=== PATIENT | male | born 1990 | race Caucasian/White ===

== ENCOUNTER 2020-03-30 08:32 | Emergency (ER) | payer BC ==
[2020-03-30 08:43] VITALS: TEMP 100.3
[2020-03-30] MEDS ORDERED: IBUPROFEN 600 MG TAB PO STA (08:51)
--- NOTE | 2020-03-30 08:53 | ED ---
General Adult HPI - General Chief complaint: Fall Stated complaint: Fall tree stand +15ft ankle injury Time Seen by Provider: 03/30/20 08:35 Source: patient, RN notes reviewed, old records reviewed Mode of arrival: wheelchair Limitations: no limitations - History of Present Illness Initial comments: This is a 30-year-old male who presents emergency Department complaining of left ankle pain. Patient states he fell out of a tree stand his feet were between 10 and 15 feet high. Patient states he landed on his feet and fell back onto his back. Patient states he did not hit his head he denies any neck pain. Patient denies chest pain or any back pain. Patient denies any numbness or weakness. Patient denies any hip pain. Patient states he only pain he experiences left ankle. Patient states he has no foot pain at all. - Related Data Previous Rx's Medication Instructions Recorded Ibuprofen [Motrin] 600 mg PO Q6HR PRN #20 tab 03/30/20 Allergies Allergy/AdvReac Type Severity Reaction Status Date / Time No Known Allergies Allergy Verified 03/30/20 08:42 Review of Systems ROS Statement: Those systems with pertinent positive or pertinent negative responses have been documented in the HPI. ROS Other: All systems not noted in ROS Statement are negative. Past Medical History Past Medical History: Asthma History of Any Multi-Drug Resistant Organisms: None Reported Past Surgical History: Adenoidectomy Past Psychological History: No Psychological Hx Reported Smoking Status: Never smoker Past Alcohol Use History: Rare Past Drug Use History: None Reported General Exam - General Exam Comments Initial Comments: GENERAL Patient is well-developed and well-nourished. Patient is in mild distress. EYES Patient's pupils are equal and round. Extraocular motion is intact SKIN Unremarkable NEURO The patient is alert and oriented 3 PYSCH Patient has normal interpersonal interactions. MUSCULOSKELETAL Left ankle is tender both medially and laterally. Patient has no tenderness of the foot or heel. Patient has no back tenderness Limitations: no limitations Course Vital Signs 03/30/20 08:35 Temperature 100.3 F H Pulse Rate 95 Respiratory 18 Rate Blood Pressure 133/82 O2 Sat by Pulse 98 Oximetry Medical Decision Making - Medical Decision Making X-ray of ankle shows no acute abnormality. Patient was able to ambulate on the ankle did not want a splint because he wanted pressure because he stands all day at work. Patient states he gets worse he'll follow-up with orthopedics. Disposition Clinical Impression: Fall, Ankle sprain Disposition: HOME SELF-CARE Condition: Good Instructions (If sedation given, give patient instructions): Ankle Sprain (ED) Prescriptions: Ibuprofen [Motrin] 600 mg PO Q6HR PRN #20 tab PRN Reason: For pain Is patient prescribed a controlled substance at d/c from ED?: No Referrals: Anthony Davis MD [STAFF PHYSICIAN] - 1-2 days Time of Disposition: 10:21
--- NOTE | 2020-03-30 09:24 | XR ---
Left ankle HISTORY: Trauma and pain 3 views of the left ankle There is soft tissue swelling present. Bone mineralization, joint spaces, alignment are maintained. IMPRESSION: No fracture or dislocation is evident.
[2020-03-30 10:38] VITALS: BP 136/76; PULSE 86; RESP 16
== END 2020-03-30 10:36 | disposition home or self-care (01) ==
LOC: EC 08:32
DX: S93.402A Sprain of unspecified ligament of left ankle, initial encounter (principal); W17.89XA Other fall from one level to another, initial encounter
CPT/HCPCS: 99284